=== PATIENT | male | born 1960 | race Caucasian/White ===

== ENCOUNTER 2022-11-09 09:55 | Outpatient (CLI) | payer OTHER ==
[2022-11-09 12:40] LABS: Hemoglobin 13.6 g/dL (13.5-17.5); Mean Corpuscular HGB CONC 32.8 g/dL (32.0-36.0); Mean Corpuscular Hemoglobin 30.8 pg (27.0-33.0); Mean Corpuscular Volume 94.1 fl (81.2-95.1); Mean Platelet Volume 9.3 fl (7.4-10.4); Platelet Count 319 10x3/uL (150-450); RBC Distribution Width 11.9 % (11.5-14.5); Red Blood Cell (RBC) Count 4.41 10x6/uL (4.32-5.72)
[2022-11-09 13:31] LABS: Anion Gap 16 mmol/L (10-20); BUN (Urea Nitrogen) 23 mg/dL (8.4-25.7); Calc. Creatinine Clearance 0 mL/min (70-130); Calcium 9.3 mg/dL (7.8-10.44); Carbon Dioxide 26 mmol/L (23-31); Chloride 104 mmol/L (98-107); Estimated GFR 70; Glucose 73 mg/dL (80-115); Potassium 5.5 mmol/L (3.5-5.1); Sodium 140 mmol/L (136-145)
== END 2022-11-09 09:56 | disposition home or self-care (01) ==
LOC: CSHLAB 09:55
PROVIDERS: ATTEND Otolaryngology Otolaryngic Allergy
DX: Z01.812 Encounter for preprocedural laboratory examination (principal); J38.01 Paralysis of vocal cords and larynx, unilateral
CPT/HCPCS: 80048; 85027

== ENCOUNTER 2022-11-14 10:07 | Day surgery (SDC) | payer OTHER ==
[2022-11-09 10:53] VITALS: BMI 27.8
[2022-11-14] MEDS ORDERED: EPINEPHrine 1 MG/ML AMP ONE (12:03)
[2022-11-14] MEDS ORDERED: Midazolam HCl 2 mg/2 ml Vial ONE (12:55)
[2022-11-14] MEDS ORDERED: Lidocaine 1% PF 5 ML VIAL ONE (12:55)
[2022-11-14] MEDS ORDERED: PROPOFOL 60 ML ONE (12:55)
[2022-11-14] MEDS ORDERED: Dexamethasone 20 MG/5 ML VIAL ONE (12:55)
[2022-11-14] MEDS ORDERED: fentaNYL 50 mcg/mL 1 mL Vial ONE (12:55)
== END 2022-11-14 16:05 | disposition home or self-care (01) ==
LOC: CSHSDC 10:07
PROVIDERS: ATTEND Otolaryngology Otolaryngic Allergy
PROC: 3E0F8GC Introduction of Other Therapeutic Substance into Respiratory Tract, Via Natural or Artificial Opening Endoscopic (ICD-10-PCS; principal; 2022-11-14)
DX: J38.01 Paralysis of vocal cords and larynx, unilateral (principal); R13.11 Dysphagia, oral phase; R49.0 Dysphonia; R13.12 Dysphagia, oropharyngeal phase; G43.909 Migraine, unspecified, not intractable, without status migrainosus; I73.9 Peripheral vascular disease, unspecified; I10 Essential (primary) hypertension; Z87.891 Personal history of nicotine dependence; Z91.041 Radiographic dye allergy status; Z91.013 Allergy to seafood; Z98.49 Cataract extraction status, unspecified eye; Z79.899 Other long term (current) drug therapy
CPT/HCPCS: 31571; J3010; C1776; J0171; J1100; J2250; J2704